=== PATIENT | female | born 1970 | race Caucasian/White ===

== ENCOUNTER → 2020-02-10 | Outpatient (CLI) | payer OTHER ==
[~2020-02-10] MED LIST: ASPIRIN EC81 M1 PO; DEPO-PROVERA; FISH OIL 1,0001 EAC5 PO; HYDROCHLOROTHIA25 M1 PO; HYDROCHLOROTHIA50 MG PO; K-DUR 20 MEQ T20 MEQ PO; LABETALOL 100100 MG PO; LISINOPRIL40 MG PO; LOPRESSOR 50 MG50 M1 PO; MACROBID 100 M100 M1 PO; MEDROLDOSEPACK PO; PRENATAL PO; TUSSIONEX PENN473 ML PO; ZOCOR40 MG PO; ZOFRAN ODT4 MG PO
== END ==
LOC: ULTRA 16:10
DX: M79.602 Pain in left arm (principal); D68.51 Activated protein C resistance

== ENCOUNTER → 2020-04-12 | Outpatient (CLI) | payer OTHER | LOC: ULTRA 07:33 | DX: I10 Essential (primary) hypertension (principal); N28.1 Cyst of kidney, acquired; M79.602 Pain in left arm ==

== ENCOUNTER → 2020-10-10 | Outpatient (CLI) | payer OTHER | LOC: SJCVCIMAG 07:40 | PROVIDERS: ATTEND Internal Medicine Cardiovascular Disease | DX: I49.3 Ventricular premature depolarization (principal); E78.5 Hyperlipidemia, unspecified; I10 Essential (primary) hypertension; Z79.899 Other long term (current) drug therapy; Z87.891 Personal history of nicotine dependence ==

== ENCOUNTER 2021-01-16 07:38 | Observation (INO) | payer OTHER ==
[2021-01-16] VITALS (7 sets, daily range): BP systolic 132–151; BP diastolic 78–97
[~2021-01-16] VITALS: Ht 177.8 cm; Wt 92.5 kg
[2021-01-16] MEDS ORDERED: NORVASC 2.5 MG2.5 M1 PO (08:19)
[2021-01-16] MEDS ORDERED: COLESTIPOL HCL5 GM PO (08:20)
[2021-01-16] MEDS ORDERED: NAPROSYN500 MG PO (08:20)
[2021-01-16] MEDS ORDERED: BENICAR40 MG PO (08:21)
[2021-01-16] MEDS ORDERED: HYDRALAZINE 5050 MG PO (08:21)
[2021-01-16] MEDS ORDERED: BYSTOLIC10 MG PO (08:21)
--- NOTE | 2021-01-16 09:41 | EKG ---
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
--- NOTE | 2021-01-16 12:45 | EKG ---
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 [employer]: AMARIS : 1970 Requested By: Hunter Gavin Order Number: [id number] : Umer Simental Measurements Intervals [place] Rate: 55 P: 0 MS: 156 QRS: 29 QRSD: 115 T: 13 QT: 471 QTc: 451 Interpretive Statements Sinus rhythm Probable left ventricular hypertrophy Compared to ECG 01/16/2021 08:19:47 Poor R-wave progression no longer present Electronically Signed On 01-16-2021 12:45:15 ENTERPRISE SALES EXECUTIVE by Umer Simental [email or web address] <ELECTRONICALLY SIGNED> By: Umer Simental MD, [facility] 01/16/21 1245 1114 13 Umer Simental MD, FACC /EPI
--- NOTE | 2021-01-16 12:46 | CATHLAB ---
[facility] [place] [address] [place] [address] INVASIVE PROCEDURE REPORT Name: SARAH HAGER Room #: 212-[facility] Tomer M.RPhillip#: [id number] Admission: 01/16/21 Attend Phys: Hunter Gavin MD Discharge: Date of : 70 Report #: [id number] THIS REPORT FOR: cc: Ko Pearce James A. DO Park, Jin S. MD ~ APPROVED REPORT Study performed: 01/16/2021 09:09:08 Patient Details Patient Status: Out-Patient Room #: The patient is a 50 year-old female Event Personnel Hunter Gavin Director Consumer, Rocio Trivedi RN RN, Irma Pacheco Paschal, Ja'net RTR Monitor, Lorenzo Cho RTR Proof Reader Procedures Performed Left Heart Cath w/or w/o Coronaries [id number] [facility] Art Access - R femoral artery* RADHA Place w/wo Plasty Single RCA 396473 11840 Initial Mod Sed Same Phys/QHP Gr5y 407918 50165 Mod Sed Same Phys/QHP Ea 204929 Indication Dyspnea, Unstable angina , Chest pain Risk Factors Hypercholesterolemia, Hypertension, Diabetes Procedure Narrative The patient was brought electively to the Cardiac Catheterization Laboratory and was prepped and draped in a sterile manner. The Right Groin^ was infiltrated with 1% Lidocaine subcutaneous anesthesia. A PINNACLE 4FR Sheath #[id number] sheath was inserted into the RFA^. Coronary angiography was performed using coronary diagnostic catheters. The right coronary system was accessed and visualized with a JR4 catheter. The left coronary system was accessed and visualized with a JL4 catheter. The left ventricle was accessed and visualized with a PIGTAIL catheter. Left ventriculogram was performed in 30 degree projection. Closure device was deployed with a Fr MYNXGRIP 6/7F #[id number]. The patient tolerated the procedure well and there were no complications associated with the procedure. There was no [address] [address] INVASIVE PROCEDURE REPORT Name: SARAH HAGER Room #: 212-[facility]#: [id number] Admission: 01/16/21 Attend Phys: Hunter Gavin MD Discharge: Date of : 70 Report #: [id number] hematoma. Intraoperative Conscious Sedation Sedation start time: 9:28 Case end Time: 10:27 Fentanyl 100 mcg Versed 2 mg Fluoro Time: 12.35 minutes Dose: DAP 9776.80 cGycm2 1243 mGy Contrast Type and Amount: Omnipaque 205 ml Coronary Angiography The patient's coronary anatomy is right dominant. Diagnostic Cath Left Main Left main artery is a large-caliber vessel, appears angiographically normal. LAD The LAD is a moderate-sized caliber vessel, traverses the anterior wall and wraps around the apex. The proximal segment is mildly ectatic. The LAD is patent, with no flow-limiting lesions. Diagonal 1 This is a moderate-sized caliber vessel with mild disease proximally, 20%. Circumflex The left circumflex artery is a moderate-sized caliber vessel, mildly ectatic in the proximal segment. There is mild disease in the proximal segment, 20%. OM1 There is a moderate-sized caliber vessel, patent with no flow-limiting lesions. OM2 There is a moderate-sized caliber vessel, patent with no flow-limiting lesions. OM3 There is a moderate-sized caliber vessel, patent with no flow-limiting lesions. Right Coronary The RCA is a dominant vessel with a severe occlusion proximally, 80 to 90%. R PDA There is a moderate-sized caliber vessel, patent with no flow-limiting lesions. RPLV There is a moderate-sized caliber vessel, patent with no flow-limiting lesions. Left Ventriculography Left Ventriculography was not performed. Ejection Fraction was 55-60% based off patient's Nuclear Cardiac Stress Test. An LVEDP was measured and there is no gradient across the outflow tract. Hemodynamics [facility] [address] [place] [address] INVASIVE PROCEDURE REPORT Name: SARAH HAGER Room #: 212-[facility] IN M.R.#: [id number] Admission: 01/16/21 Attend Phys: Hunter Gavin MD Discharge: Date of : 70 Report #: [id number] The aortic pressure is 132/84 mmHg with a mean of 104 mmHg. The left ventricular pressure is 147/12 mmHg with a mean of mmHg. The left ventricular end diastolic pressure is 21 mmHg. Pullback from the left ventricle to the aorta revealed no gradient across the aortic valve. PCI Technique Lesion Percutaneous coronary intervention was performed on the proximal right coronary artery. The lesion stenosis prior to intervention was 85% with DAVID 3 flow. A VISTA 6FR JR 4 #[id number] Guide Catheter was used to engage the RCA ostium. A Luge Wire .014 x 182CM #[id number] Interventional Guidewire was used to cross the lesion. BALLOON DILATION A Balloon catheter Euphora RX 2.25 x 12 #[id number] was inserted and inflated up to 8.00atm for 34seconds. Additional Inflation: 14.00atm for 18seconds. STENT DEPLOYMENT A stent RESOLUTE JANET RX 3.0 X 26 #[id number] was inserted and inflated up to 12.00atm for 21seconds. POST STENT DEPLOYMENT BALLOON DILATION A Balloon catheter Euphora NC RX 3.25 x 15 #[id number] was inserted and inflated up to 16.00atm for 15seconds. Additional Inflation: 18.00atm for 20seconds. Final angiography reveals 0 % stenosis with DAVID 3 flow. Conclusion 1. Successful insertion of a drug-eluting stent into the proximal RCA occlusion. 2. There are ectatic segments in the LAD and left circumflex arteries. 3. There is mild disease in the first diagonal and LCx arteries. 4. There is normal LV systolic function. 5. Recommend dual antiplatelet therapy and aggressive risk factor management. <ELECTRONICALLY SIGNED> By: Hunter Gavin MD 01/16/21 1246 124 124 Hunter Gavin MD /INF
--- NOTE | 2021-01-16 15:19 | NUR ---
TO UNIT FROM [employer] SALES UNIT SALES LEADER, REPORT FROM NEVA NICLOAS. VSJoaquin. JEREMY BECK, SOMelissa. RIGHT GROIN SITE CDI.
[2021-01-17 00:45] VITALS: BP 125/75
--- NOTE | 2021-01-17 03:50 | NUR ---
ASSESSMENTS CHARTED, MEDS CHARTED GIVEN. PATIENT WENT TO CONCRETE ENGINEERING TECHNICIAN DURING DAY, RECEIVED STENT TO PROX RCA. RIGHT GROIN ACCESS SITE IS TENDER BUT SOFT AND DRY. MINXX CLOSURE. PATIENT UP AT JOHAN IN ROOM. DID NOT GIVE SCHEDULED HYDRALAZINE DUE TO LOW BLOOD PRESSURE. FALL PRECAUTIONS IN PLACE DURING SHIFT.
[2021-01-17 04:45] VITALS: BP 125/78
[2021-01-17 05:28] LABS: HEMATOCRIT 40.4 % (37.0-47.0); HEMOGLOBIN 13.4 gm/dL (12.0-15.0); MCH 29.8 pg (26.0-34.0); MCHC 33.3 g/dL (28.0-37.0); MCV 89.4 fL (80.0-100.0); RBC 4.51 mil/uL (4.20-5.00); RDW 13.3 % (10.5-14.5); WBC 8.1 thou/uL (4.0-11.0)
[2021-01-17 05:46] LABS: CALCIUM 8.5 mg/dL (8.5-10.1); CREATININE 0.9 mg/dL (0.6-1.0); POTASSIUM 3.2 mmol/L (3.5-5.1); TOTAL BILIRUBIN 0.3 mg/dL (0.2-1.0); TOTAL PROTEIN 6.3 g/dL (6.4-8.2)
[2021-01-17 07:20] VITALS: BP 121/77
--- NOTE | 2021-01-17 07:38 | EKG ---
[address] [address] ELECTROCARDIOGRAM REPORT Name: SARAH HAGER Room #: 212-[facility]#: [id number] Admission: 01/16/21 Attend Phys: Hunter Gavin MD Discharge: Date of : 70 Report #: [id number] 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
[2021-01-17] MEDS ORDERED: EFFIENT10 MG PO (09:10)
[2021-01-17] MEDS ORDERED: NORVASC5 MG PO (09:10)
[2021-01-17 10:19] VITALS: BP 121/77
[2021-01-18 00:05] LABS: GLYCOHEMOGLOBIN (HGB A1C) 5.6 % (4.8-5.6)
[2021-01-18 10:27] LABS: CHOLESTEROL 217 mg/dL (<200); HDL CHOLESTEROL 42 mg/dL (>40); LDL CHOLESTEROL 135 mg/dL (<100); TC:HDL 5.2 Ratio (Not establshd); TRIGLYCERIDE 202 mg/dL (<150); VLDL 40 mg/dL (<40)
== END 2021-01-17 11:29 | disposition home or self-care (01) ==
LOC: CATH 07:38 → 2N 12:15
PROVIDERS: ADMIT Internal Medicine Cardiovascular Disease; ATTEND Internal Medicine Cardiovascular Disease
DX: I20.0 Unstable angina (principal); I10 Essential (primary) hypertension; E11.9 Type 2 diabetes mellitus without complications

== ENCOUNTER → 2021-01-22 | Outpatient (CLI) | payer OTHER ==
[~2021-01-22] MED LIST changes: +BENICAR40 MG PO; +BYSTOLIC10 MG PO; +COLESTIPOL HCL5 GM PO; +EFFIENT10 MG PO; +HYDRALAZINE 5050 MG PO; +NAPROSYN500 MG PO; +NORVASC 2.5 MG2.5 M1 PO; +NORVASC5 MG PO
== END ==
LOC: SJCVCIMAG 11:16
PROVIDERS: ATTEND Internal Medicine Cardiovascular Disease
DX: R19.09 Other intra-abdominal and pelvic swelling, mass and lump (principal); I10 Essential (primary) hypertension; R06.00 Dyspnea, unspecified